=== PATIENT | female | born 1960 | race Caucasian/White ===

== ENCOUNTER 2020-06-26 17:25 | Emergency (ER) | payer OTHER, SELFPAY ==
--- NOTE | ~2020-06-26 | XR_ITS ---
XR elbow LT min 3V 06/26/2020 18:02 INDICATION: Left elbow pain after fall PROCEDURE: 4 views left elbow COMPARISON: No prior studies for comparison. FINDINGS: Fracture, dislocation or subluxation is not identified. The soft tissues appear within norm al limits. No foreign bodies are identified. IMPRESSION: 1: NO ACUTE BONE OR JOINT ABNORMALITY IDENTIFIED. Reviewed, dictated and finalized at location A.
[2020-06-26 17:37] VITALS: BP 122/80; PULSE 70; RESP 20; TEMP 37.3; O2SAT 99
--- NOTE | 2020-06-26 17:51 | ED.UPPEXIN ---
HPI - Extremity Injury (Upper) General Chief Complaint: Extremity Injury, Upper Stated Complaint: left elbow pain Time Seen by Provider: 06/26/20 17:52 Source: patient and RN notes reviewed Mode of arrival: ambulatory Limitations: other (unable to give medication history) History of Present Illness HPI narrative: 60 year old female who presents to [facility] care with complaints of tripping and falling into wall 4 days ago with injury to her left elbow down to her mid forearm with point of tenderness at the proximal forearm dorsal aspect near radial head Patient states that she has been taking aspirin for her discomfort with last dose this morning. Patient has small area of bruising noted to proximal forearm with no swelling noted, patient states that pin is sharp and rates her discomfort at 5/10. MD complaint: injury to: left Onset (ago): day(s) (4) Other Extremity Injury: Left: elbow (proximal forearm) Other injuries: none Handedness: right Place: home Severity: moderate Severity scale (1-10): 5 Relieving factors: rest Exacerbating factors: movement of extremity Context: fall Associated symptoms: denies other symptoms Treatments prior to arrival: NSAIDS Related Data Home Medications Medication Instructions Recorded Confirmed alprazolam [Xanax] 1 mg PO HS 06/26/20 06/26/20 Allergies Allergy/AdvReac Type Severity Reaction Status Date / Time No Known Allergies Allergy Verified 06/26/20 17:51 Review of Systems Review of Systems: Narrative: CONSTITUTIONAL: Denies fever, chills, or sweats. EYES: Denies visual changes, redness, or discharge. ENT: Denies rhinorrhea, congestion, sore throat, or otalgia. CARDIOVASCULAR: Denies chest pain, palpitations, or edema. RESPIRATORY: Denies cough or dyspnea. GASTROINTESTINAL: Denies abdominal pain, nausea, vomiting, or diarrhea. GENITOURINARY: Denies dysuria or hematuria. SKIN: Denies rash or itching. MUSCULOSKELETAL: Denies back pain,positive pain to left elbow along radial head region. NEUROLOGIC: Denies headache, numbness, or weakness. PSYCHIATRIC: Positive for history anxiety or depression. All systems reviewed & are unremarkable except as noted in HPI and below PMFSH Past Medical History Medical History (Updated 06/29/20 @ 08:38 by Princess Baumann NP) Anxiety and depression Colon cancer Hypertension Psoriasis Surgical History Surgical History (Updated 06/29/20 @ 08:33 by Princess Baumann NP) H/O tubal ligation History of colon resection History of colostomy reversal History of knee replacement, total bilateral Social History Social History (Updated 06/29/20 @ 08:33 by Princess Baumann NP) Smoking status: Former smoker Alcohol intake: unknown Substance use: unknown Living arrangements: with family Gender identity (if verbalized by the patient): Female Comments At time of signature, agree with nursing past medical, surgical, social history. There is no relevant family history pertinent to the presenting complaint Exam Narrative: Exam Narrative: GENERAL: Well-appearing, well-nourished, and in no acute distress. HEAD: Normocephalic, atraumatic. EYES: PERRLA and EOMI. ENT: Nares clear, no rhinorrhea or epistaxis. Mucous membranes moist. NECK: Supple. CHEST: Clear to auscultation. No respiratory distress. HEART: Regular rate and rhythm. No murmur heard. Normal peripheral pulses. ABDOMEN: Soft, nontender, nondistended, normal active bowel sounds. EXTREMITIES: Normal range of motion. No edema.Pain to left elbow region over radial head area and proximal forearm dorsal area, increase pain with movement, denies any tingling or numbness to left upper extremity or hand, strong pulses to left arm, small area of ecchymosis to left proximal forearm. SKIN: Warm, dry, no rash. NEURO: No focal deficits. Alert and oriented x3. Course Vital Signs Vital signs: Vital Signs Temperature 37.3 C 06/26/20 17:37 Pulse Rate 70 06/26/20 17:37 Respiratory R
== END 2020-06-26 18:36 | disposition home or self-care (01) ==
PROVIDERS: Emergency Provider Registered Nurse
DX: S59.902A Unspecified injury of left elbow, initial encounter (principal); W01.198A Fall on same level from slipping, tripping and stumbling with subsequent striking against other object, initial encounter; I10 Essential (primary) hypertension; F41.9 Anxiety disorder, unspecified; Z85.038 Personal history of other malignant neoplasm of large intestine; Z96.659 Presence of unspecified artificial knee joint
CPT/HCPCS: 73080; 99213; G0463